=== PATIENT | female | born 1985 | race Caucasian/White ===

== ENCOUNTER 2016-09-04 16:51 | Inpatient (IN) | payer BC ==
[2016-09-04] MEDS ORDERED: ZOLPIDEM 5 MG TAB PO PRN (17:04)
[2016-09-04] MEDS ORDERED: BUTORPHANOL 1 MG/ML 1 ML VIAL IV PRN (17:04)
[2016-09-04] MEDS ORDERED: DINOPROSTONE 10 MG INSERT.ER VAGINAL ONE (17:04)
[2016-09-04 17:58] VITALS: BMI 39.1
[2016-09-04 18:22] LABS: Glucose,Whole Blood 86 mg/dL (75-99)
--- NOTE | 2016-09-04 20:07 | P.HPOB ---
History of Present Illness H&P Date: 09/04/16 Chief Complaint: Induction of labor This is a 31-year-old female 1 para 0 with an estimated date of confinement of 09/08/2006, estimated gestational age of 39-2/7 weeks, who presents for Cervidil cervical ripening followed by oxytocin induction of labor. Her has been complicated by gestational diabetes on glyburide. This has been well controlled. Maternal medicine has suggested delivery between 39 and 40 weeks. She has been getting weekly biophysical profile and Dopplers and twice weekly nonstress tests. She denies feeling regular contractions. She is feeling good movement. labs: GC/chlamydia-negative Random glucose-83 hepatitis B surface antigen-negative Hemoglobin-12 Toxoplasma-negative Syphilis antibody-nonreactive Rubella-immune Blood type-A+ Antibody screen-negative Obstetrical ultrasound-normal anatomy One hour Glucola-134 Three-hour [id number], 1 hour-to 210, 2 hour-172, 3 hour-100 Group B streptococcus-negative Obstetrical history: Gynecologic history: No history of sexually transmitted diseases. Review of Systems Gastrointestinal: Reports abdominal pain (Irregular contractions) Genitourinary: Reports pelvic pain, Reports Past Medical History Additional Past Medical History / Comment(s): Gestational diabetes History of Any Multi-Drug Resistant Organisms: None Reported Past Surgical History: Cholecystectomy Additional Past Surgical History / Comment(s): cyst from lt wrist as a child Past Anesthesia/Blood Transfusion Reactions: No Reported Reaction Past Psychological History: No Psychological Hx Reported Smoking Status: Former smoker Past Alcohol Use History: None Reported Past Drug Use History: None Reported - Past Family History Father Family Medical History: Diabetes Mellitus, Hypertension Medications and Allergies Home Medications Medication Instructions Recorded Confirmed Type Vit No.78/Iron/FA [Pretab 1 each PO DAILY 09/04/16 09/04/16 History 29 mg-1 mg Tablet] glyBURIDE [Glyburide] 2.5 mg PO AC-SUPPER 09/04/16 09/04/16 History Allergies Allergy/AdvReac Type Severity Reaction Status Date / Time Penicillins Allergy Intermediate Dyspnea Verified 09/04/16 17:02 Exam Osteopathic Statement: *. No significant issues noted on an osteopathic structural exam other than those noted in the History and Physical/Consult. - Vital Signs Vital signs: Vital Signs Temp Pulse Resp BP Pulse Ox 09/04/16 17:00 97.6 F 88 18 132/77 97 Intake and Output 09/04/16 09/04/16 09/04/16 06:59 14:59 22:59 Other: Weight 120.202 kg Patient Weight 09/05/16 06:59 Weight 120.202 kg HEENT: Within normal limits Heart: Regular rate and rhythm Lungs: Clear to auscultation bilaterally Abdomen: Cervix: Closed/70%/-3 heart tones: Reactive Contractions: Rare Extremities: Negative Homans Assessment and Plan (1) 39 weeks gestation of Status: Acute (2) Gestational diabetes mellitus (GDM) affecting Status: Acute Plan: Proceed with Cervidil cervical ripening followed by oxytocin induction of labor. Expectant management. Will monitor blood sugars while in labor. Epidural anesthesia if desired.
[2016-09-05] MEDS ORDERED: OXYTOCIN 10 UNIT/ML 1 ML VIAL IM PRN (05:45)
[2016-09-05] MEDS ORDERED: OXYTOCIN 30 UNITS/500 ML NS 30 UNIT in SALINE 1 500ML.BAG IV SCH (05:45)
[2016-09-05] MEDS ORDERED: TERBUTALINE 1 MG/ML VIAL SQ PRN (05:45)
[2016-09-05] MEDS ORDERED: LIDOCAINE 1% (PF) 10 MG/ML (30 ML SDV) SQ PRN (05:45)
[2016-09-05] MEDS ORDERED: LIDOCAINE 1% 20 ML VIAL (10MG/ML) FOR IV START INTRADERMA PRN (05:45)
[2016-09-05] MEDS ORDERED: CARBOPROST TROMETHAMINE 250 MCG/ML 1 ML AMP IM PRN (05:45)
[2016-09-05] MEDS ORDERED: METHYLERGONOVINE 0.2 MG/ML 1 ML AMP IM PRN (05:45)
[2016-09-05 05:49] LABS: Glucose,Whole Blood 86 mg/dL (75-99)
[2016-09-05] MEDS: LACTATED RINGERS 1,000 ML IV SCH ×3 (05:54→20:00)
[2016-09-05 05:58] LABS: Basophils % (A) 0 %; CH 29.7; CHCM 33.6; Eosinophils # (A) 0.1 k/uL (0-0.7); Eosinophils % (A) 1 %; HCT 36.7 % (34.0-46.0); HDW 3.25; HGB 11.8 gm/dL (11.4-16.0); Luc # (Auto) 0.11; Luc % (Auto) 1; Lymphocytes # (A) 1.1 k/uL (1.0-4.8); Lymphocytes % (A) 14 %; MCH 28.6 pg (25.0-35.0); MCHC 32.2 g/dL (31.0-37.0); MCV 88.9 fL (80.0-100.0); Mean Platelet Volume 8.8; Monocytes # (A) 0.6 k/uL (0-1.0); Monocytes % (A) 7 %; Neutrophils # (A) 6.1 k/uL (1.3-7.7); Neutrophils % (A) 77 %; RBC 4.13 m/uL (3.80-5.40); RDW 14.4 % (11.5-15.5); WBC 7.9 k/uL (3.8-10.6); WBC (Perox) 8.54
[2016-09-05] MEDS ORDERED: CITRIC ACID-SODIUM CITRATE 15 ML CUP PO ONE (07:58)
[2016-09-05] MEDS ORDERED: ceFAZolin 3 GM in SODIUM CHLORIDE 0.9% 100 ML IVPB ONE (07:58)
[2016-09-05] MEDS ORDERED: CLINDAMYCIN 900 MG in DEXTROSE 5% IN WATER 50 ML IVPB ONE ×2 (08:15)
[2016-09-05] MEDS ORDERED: CLINDAMYCIN 150 MG/ML 4 ML VIAL ONE (08:18)
[2016-09-05] MEDS ORDERED: ONDANSETRON 4 MG/2 ML VIAL ONE (08:18)
[2016-09-05] MEDS ORDERED: OXYTOCIN 10 UNIT/ML 1 ML VIAL IM ONE (08:18)
[2016-09-05] MEDS ORDERED: LACTATED RINGERS 1,000 ML BAG IV ONE (08:18)
[2016-09-05] MEDS ORDERED: KETOROLAC 30 MG/ML 1 ML VIAL ONE (08:18)
[2016-09-05] MEDS ORDERED: MORPHINE SULFATE (PF) 0.3 MG/0.3 ML SYR ONE (08:18)
[2016-09-05] MEDS ORDERED: NALBUPHINE 10 MG/ML AMPUL ONE (08:18)
[2016-09-05] MEDS ORDERED: NALOXONE 0.4 MG/ML 1 ML VIAL IV PRN (08:56)
[2016-09-05] MEDS ORDERED: MORPHINE SULFATE 4 MG/ML SYRINGE IVP PRN (08:56)
[2016-09-05] MEDS ORDERED: ONDANSETRON 4 MG/2 ML VIAL IVP PRN (08:56)
[2016-09-05] MEDS ORDERED: diphenhydrAMINE 50 MG/ML 1 ML VIAL IVP PRN ×3 (08:56→09:06)
--- NOTE | 2016-09-05 08:59 | P.OP ---
Date of Procedure: 09/05/16 Preoperative Diagnosis: 1. Intrauterine at 39-4/7 weeks. 2. Failed Cervidil ripening. 3. Gestational diabetes. Postoperative Diagnosis: Same Procedure(s) Performed: Primary low transverse section Anesthesia: spinal (Duramorph) Surgeon: Ana Rosa Rich Fire Alarm Repairer #1: Coleman Puentes Estimated Blood Loss (ml): 500 Pathology: other (Placenta) Condition: stable Disposition: floor Indications for Procedure: This is a 31-year-old female 1 para 0 at 39-4/7 weeks who presented last evening for Cervidil cervical ripening. She underwent a Cervidil cervical ripening overnight and made absolutely no change in her cervix despite the Cervidil through the night. She denied feeling any regular contractions through the night. She was given the option of continuing with oxytocin and attempting artificial rupture membranes later in the day versus section versus going home and trying again on another day. [facility] has recommended that she be delivered between 39 and 40 weeks. She made a decision to proceed with section this morning. I have discussed the risks, benefits, and alternative therapies for the above- mentioned procedure and for both sedation/anesthesia as well as necessary blood products administration, if indicated, as they pertain to this patient. The patient has indicated her understanding and acceptance of the risks and procedures discussed. Operative Findings: A viable male is noted in the vertex presentation with scores of 8 at 1 minute and 8 at 5 minutes and infant weight of 9 lbs. 7 oz. Normal uterus tubes and ovaries are noted. Description of Procedure: The patient is taken to the operating room where she is placed in the dorsal supine position with leftward tilt after spinal Duramorph anesthesia is given. She is prepped and draped in the normal sterile fashion. Skin was tested and found to be adequately anesthetized. A Pfannenstiel skin incision was made with a scalpel. A second knife was used to carry the incision down to the underlying layer of fascia. The fascia was nicked in the midline with a scalpel and then extended laterally bilaterally with Garcia scissors. The anterior lip of the fascia was grasped with 2 Ritika clamps and then dissected off the underlying rectus muscle in the midline with Garcia scissors. The inferior aspect of the fascial incision was grasped with 2 Ritika clamps and dissected off the underlying rectus muscle and the midline with Garcia scissors. Next the peritoneum layer was tented up with 2 hemostats and then entered sharply with the scalpel. The incision is extended superiorly and inferiorly with Metzenbaum scissors. Next a DeLee retractor is placed. The vesicouterine peritoneum is entered sharply with Metzenbaum scissors and extended laterally bilaterally with Metzenbaum scissors and then the bladder flap is pushed inferiorly. The lower uterine segment is incised in transverse fashion with the scalpel and then bluntly entered with a hemostat. Clear fluid is noted. The incision was then extended laterally bilaterally with 2 fingers. Next the infant's head is delivered through the incision. Nose and mouth are bulb suctioned. The remainder of the is easily delivered and placed on mother 's abdomen. Cord is clamped and cut. is taken to warmer by nursing staff. Uterine fundus is gently massaged and placenta is delivered manually. Uterus is exteriorized and cleared of all clots and debris. Uterine incision is closed with 0 Vicryl suture in a running locked fashion. A second layer of 0 Vicryl suture is used in a running fashion for hemostasis. Once adequate hemostasis as assured, the vesicouterine peritoneum is reapproximated with 2-0 Vicryl suture in a running fashion. Posterior cul-de-sac is suctioned of all clots and debris. Uterus is returned to the abdomen. Incision is noted to be hemostatic. Peritoneal layer is closed with 0 Vicryl suture in a running fashion. Muscle layer is reapproximated with 0 Vicryl suture in interrupted fashion. Fascia layer is then closed with 0 PDS suture with 2 sutures meeting in the midline and the knots buried in either side and in the midline. The subcutaneous tissue was then closed with 2-0 Vicryl suture. Skin layer was then closed with lonnie. All sponge and needle counts are correct. The patient is taken to recovery room in stable condition.
[2016-09-05] MEDS ORDERED: diphenhydrAMINE 50 MG CAP PO PRN (09:06)
[2016-09-05] MEDS ORDERED: ZOLPIDEM 5 MG TAB PO PRN (09:06)
[2016-09-05] MEDS ORDERED: LANOLIN CREAM 5 GM TUBE TOPICAL PRN (09:06)
[2016-09-05] MEDS ORDERED: METOCLOPRAMIDE 5 MG/ML 2 ML VIAL IVP PRN (09:06)
[2016-09-05] MEDS ORDERED: SIMETHICONE 80 MG CHEWABLE PO PRN (09:06)
[2016-09-05] MEDS ORDERED: ACETAMINOPHEN TAB 325 MG TAB PO PRN (09:06)
[2016-09-05] MEDS ORDERED: Acetaminophen-Codeine 300-30mg TAB PO PRN (09:06)
[2016-09-05] MEDS ORDERED: diphenhydrAMINE 25 MG CAP PO PRN (09:06)
[2016-09-05 13:11] LABS: Hemoglobin A1C 5.1 % (4.2-6.1)
[2016-09-05 14:12] LABS: Glucose,Whole Blood 66 mg/dL (75-99)
[2016-09-05] MEDS: KETOROLAC 30 MG/ML 1 ML VIAL IVP PRN ×2 (16:19→23:48)
[2016-09-05 17:24] LABS: Glucose,Whole Blood 69 mg/dL (75-99)
[2016-09-06] MEDS: SENNOSIDES-DOCUSATE SODIUM 1 EACH TAB PO SCH ×3 (00:26→19:39)
[2016-09-06 00:34] LABS: Glucose,Whole Blood 88 mg/dL (75-99)
[2016-09-06 08:24] LABS: Basophils % (A) 0 %; CH 29.4; CHCM 32.8; Eosinophils # (A) 0.1 k/uL (0-0.7); Eosinophils % (A) 1 %; HCT 33.1 % (34.0-46.0); HDW 3.22; HGB 10.4 gm/dL (11.4-16.0); Luc # (Auto) 0.07; Luc % (Auto) 1; Lymphocytes # (A) 0.8 k/uL (1.0-4.8); Lymphocytes % (A) 14 %; MCH 28.3 pg (25.0-35.0); MCHC 31.4 g/dL (31.0-37.0); MCV 90.1 fL (80.0-100.0); Monocytes # (A) 0.3 k/uL (0-1.0); Monocytes % (A) 6 %; Neutrophils # (A) 4.8 k/uL (1.3-7.7); Neutrophils % (A) 79 %; RBC 3.68 m/uL (3.80-5.40); RDW 14.4 % (11.5-15.5); WBC 6.1 k/uL (3.8-10.6); WBC (Perox) 6.43
[2016-09-06 08:24] LABS: Glucose,Whole Blood 69 mg/dL (75-99)
--- NOTE | 2016-09-06 09:01 | P.PNOBGPC ---
Subjective - Subjective Principal diagnosis: Status post primary section postoperative day #1 Interval history: Patient is doing well. She is ambulating and passing flatus. Lochia is decreasing. Pain is fairly well controlled. She is bottle feeding. Patient reports: Reports appetite normal, Reports voiding normally, Reports pain well controlled, Reports ambulating normally [place]: doing well, bottle feeding Objective - Vital Signs Latest vital signs: Vital Signs Temp Pulse Resp BP Pulse Ox 09/06/16 04:00 98 F 70 15 118/65 09/06/16 00:00 98 F 73 15 116/68 09/05/16 20:00 98.1 F 66 15 117/65 100 09/05/16 16:00 97.9 F 70 20 115/68 99 09/05/16 12:00 98.3 F 69 16 107/73 98 09/05/16 11:00 96.9 F L 69 16 131/87 09/05/16 10:36 96.6 F L 69 16 138/76 09/05/16 10:06 95.9 F L 68 16 112/59 100 09/05/16 09:56 99 09/05/16 09:50 96.4 F L 70 16 121/63 99 09/05/16 09:36 96.4 F L 70 16 117/65 99 09/05/16 09:21 95.9 F L 70 16 118/63 98 09/05/16 09:06 95.9 F L 67 16 106/55 99 Intake and Output 09/05/16 09/06/16 09/06/16 22:59 06:59 14:59 Output Total 300 300 Balance -300 -300 Output: Urine 300 300 Other: # Voids 1 - Exam Extremities: Present: normal. Absent: tenderness Abdomen: Present: normal appearance, soft (Positive bowel sounds 4). Absent: distention, tenderness Incision: Present: normal, dry, intact Uterus: Present: normal, firm. Absent: tenderness - Labs Labs: Abnormal Lab Results - Last 24 Hours (Table) 09/05/16 09/05/16 09/06/16 Range/Units 13:48 17:21 07:57 RBC 3.68 L (3.80-5.40) m/uL Hgb 10.4 L (11.4-16.0) gm/dL Hct 33.1 L (34.0-46.0) % Lymphocytes # 0.8 L (1.0-4.8) k/uL POC Glucose (mg/dL) 66 L 69 L (75-99) mg/dL 09/06/16 Range/Units 08:15 RBC (3.80-5.40) m/uL Hgb (11.4-16.0) gm/dL Hct (34.0-46.0) % Lymphocytes # (1.0-4.8) k/uL POC Glucose (mg/dL) 69 L (75-99) mg/dL Assessment and Plan (1) 39 weeks gestation of Current Visit: Yes Status: Acute Code(s): Z3A.39 - 39 WEEKS GESTATION OF SNOMED Code(s): 83897849 (2) Gestational diabetes mellitus (GDM) affecting Current Visit: Yes Status: Acute Code(s): O24.419 - GESTATIONAL DIABETES MELLITUS IN , UNSP CONTROL SNOMED Code(s): 63150582109474 (3) delivery delivered Narrative/Plan: Impression is status post primary section postoperative day #1. Plan is to continue with postoperative and care today. Will advance diet as tolerated. Current Visit: Yes Status: Acute Code(s): O82 - ENCOUNTER FOR DELIVERY WITHOUT INDICATION SNOMED Code(s): 677009017
--- NOTE | 2016-09-06 10:34 | P.PN ---
Progress Note - Text Postoperative day 1 status post section under spinal anesthesia, and intrathecal morphine given for postoperative analgesia, patient doing well, there is no anesthesia related complications, further management as per her primary team
[2016-09-06] MEDS: Acetaminophen-Codeine 300-30mg TAB PO PRN ×2 (11:39→19:39)
[2016-09-06] MEDS ORDERED: INFLUENZA VACCINE (3YR+) 60 MCG/0.5 ML SYRINGE IM ONE (16:16)
[2016-09-06] MEDS ORDERED: DIPH,PERTUS(ACELL)TETVAC-LF 0.5 ML VIAL IM ONE (16:17)
[2016-09-06] MEDS: IBUPROFEN 600 MG TAB PO PRN (16:39)
[2016-09-07] MEDS: Acetaminophen-Codeine 300-30mg TAB PO PRN (05:09)
[2016-09-07] MEDS: SENNOSIDES-DOCUSATE SODIUM 1 EACH TAB PO SCH (07:37)
[2016-09-07] MEDS: IBUPROFEN 600 MG TAB PO PRN (07:38)
--- NOTE | 2016-09-07 08:56 | P.DS ---
Providers Date of admission: 09/04/16 16:51 Expected date of discharge: 09/07/16 Attending physician: Ana Rosa Rich Primary care physician: Meng Osorio - Discharge Diagnosis(es) (1) 39 weeks gestation of Current Visit: Yes Status: Acute (2) Gestational diabetes mellitus (GDM) affecting Current Visit: Yes Status: Acute (3) delivery delivered Current Visit: Yes Status: Acute Hospital Course: This is a 31-year-old female 1 para 0 at 39-3/7 weeks who presented initially for Cervidil cervical ripening followed by oxytocin induction of labor. In the morning she had made no cervical change and therefore was offered a section. She underwent a primary low transverse section on 09/05/2016 and delivered a viable male with scores of 8 at 1 minute and 8 at 5 minutes and infant weight of 9 lbs. 7 oz. Her postoperative and course has been uncompensated. She is passing flatus but no bowel movement yet. She is tolerating regular diet. Pain is fairly well controlled with oral pain medications. She is bottle feeding. No vital signs are stable. Abdomen is soft with positive bowel sounds 4. Incision is clean dry and intact with lonnie in place. Extremities show negative Homans. Impression is status post primary low transverse section postoperative day #1. Plan is to discharge home today. [place] will be removed and sterile strips placed prior to discharge. She will be given up her prescription for ibuprofen and Tylenol 3. She is advised to follow up in the office in approximately 1-2 weeks for postoperative check and in 6 weeks for check. She is advised to call the office if she has any further questions or concerns prior to her appointment time. Procedures: Cervidil cervical ripening on 09/04/2016 Primary low transverse section on 09/05/2016 Patient Condition at Discharge: Stable Plan - Discharge Summary New Discharge Prescriptions: Acetaminophen-Codeine 300-30mg [Tylenol w/codeine #3] 1 each PO Q4HR PRN #30 tab PRN Reason: Mild Pain Ibuprofen [Motrin] 600 mg PO Q6HR PRN #60 tab PRN Reason: Mild Pain Or Fever >= 100.5 Discharge Medication List Vit No.78/Iron/FA [Pretab 29 mg-1 mg Tablet] 1 each PO DAILY 09/04/16 [ History] Acetaminophen-Codeine 300-30mg [Tylenol w/codeine #3] 1 each PO Q4HR PRN #30 tab 09/07/16 [Rx] Ibuprofen [Motrin] 600 mg PO Q6HR PRN #60 tab 09/07/16 [Rx] Follow up Appointment(s)/Referral(s): Ana Rosa Rich DO [Doctor of Osteopathic Medicine] - 1 Week (Postoperative check in 1-2 weeks check in 6 weeks) Activity/Diet/Wound Care/Special Instructions: Instructions 1. Do not begin any exercise program for 3 weeks. 2. Do not resume sexual relations for 3 weeks or longer if uncomfortable. 3. You may take tub baths or showers at any time. 4. You may use tampons if desired after 3 weeks. 5. Keep the area of episiotomy (stitches) clean and dry. 6. If you are not nursing, wear a good fitting, supportive bra during the day and limit fluid intake for at least 1 week to prevent breast engorgement. 7. Call the office, [phone], within the next week to make appointment for your 6 week checkup if it has not already been made. 8. Report any of the following occurrences to the doctor promptly: a. Heavy, excessive bleeding b. Chills, fever c. Burning or frequency of urination d. Pain or redness and breasts if nursing e. Increasing pain or swelling in episiotomy (stitches). In addition to the above instructions, the following additional should be followed: 1. No heavy lifting or straining (exercising) until after 6 week checkup. 2. Keep abdominal incision clean and dry: You may wear a dressing if more comfortable. 3. Make office appointment for 10 days after going home or as instructed by her doctor. Discharge Disposition: HOME SELF-CARE
[2016-09-07 09:41] VITALS: BP 120/77; PULSE 91; RESP 18; TEMP 98.2
== END 2016-09-07 11:45 | disposition home or self-care (01) | DRG 766 ==
LOC: 4FBP 16:51
PROVIDERS: ADMIT Obstetrics & Gynecology; ATTEND Obstetrics & Gynecology
PROC: 3E0P7GC Introduction of Other Therapeutic Substance into Female Reproductive, Via Natural or Artificial Opening (ICD-10-PCS; 2016-09-04)
PROC: 3E0S3NZ Introduction of Analgesics, Hypnotics, Sedatives into Epidural Space, Percutaneous Approach (ICD-10-PCS; 2016-09-05)
PROC: 10D00Z1 Extraction of Products of Conception, Low, Open Approach (ICD-10-PCS; principal; 2016-09-05 08:00)
PROC: 3E0234Z Introduction of Serum, Toxoid and Vaccine into Muscle, Percutaneous Approach (ICD-10-PCS; 2016-09-06)
PROC: 3E0234Z Introduction of Serum, Toxoid and Vaccine into Muscle, Percutaneous Approach (ICD-10-PCS; 2016-09-06)
DX: O24.425 Gestational diabetes mellitus in childbirth, controlled by oral hypoglycemic drugs (principal); O62.0 Primary inadequate contractions; Z23 Encounter for immunization; Z87.891 Personal history of nicotine dependence; Z83.3 Family history of diabetes mellitus; Z82.49 Family history of ischemic heart disease and other diseases of the circulatory system; Z3A.39 39 weeks gestation of pregnancy; Z37.0 Single live birth; Z79.84 Long term (current) use of oral hypoglycemic drugs; Z88.0 Allergy status to penicillin; Z90.49 Acquired absence of other specified parts of digestive tract
CPT/HCPCS: 83036; 85025; 88307; 90686; 90715